=== PATIENT | female | born 1965 ===

== ENCOUNTER 2018-07-28 15:14 | Emergency (ER) | payer OTHER ==
[2018-07-28 15:49] VITALS: BP 120/76
--- NOTE | 2018-07-28 16:18 | UC ---
Skin Complaint HPI - HPI Summary HPI Summary: L sided rash on abd which started about 1 wk ago. feels its worsening , tender to touch. denies sick contacts. - History of Current Complaint Chief Complaint: UCSkin Time Seen by Provider: 07/28/18 16:01 Stated Complaint: SKIN CONCERN Hx Obtained From: Patient Pain Intensity: 4 Pain Scale Used: 0-10 Numeric Aggravating Factor(s): Touch Alleviating Factor(s): Nothing - Allergy/Home Medications Allergies/Adverse Reactions: Allergies Allergy/AdvReac Type Severity Reaction Status Date / Time No Known Allergies Allergy Verified 07/28/18 15:34 Home Medications: Home Medications Isoniazid TAB* 1 tab DAILY 07/28/18 [History Confirmed 07/28/18] Losartan TAB* [Cozaar TAB*] 1 tab QAM 07/28/18 [History Confirmed 07/28/18] PMH/Surg Hx/FS Hx/Imm Hx Previously Healthy: Yes - Surgical History Surgical History: None - Social History Alcohol Use: None Substance Use Type: None Smoking Status (MU): Never Smoked Tobacco Review of Systems All Other Systems Reviewed And Are Negative: Yes Constitutional: Negative: Fever, Chills Skin: Positive: Rash Musculoskeletal: Negative: Arthralgia, Myalgia Physical Exam Triage Information Reviewed: Yes Appearance: Well-Appearing Vital Signs: Initial Vital Signs Temp 98.1 F 07/28/18 15:35 Pulse 62 07/28/18 15:35 Resp 16 07/28/18 15:35 BP 120/76 07/28/18 15:35 Pulse Ox 100 07/28/18 15:35 Vital Signs Reviewed: Yes Skin: Positive: Significant Lesion(s) - L sided vesicular eruption following a dermatome. +tender to touch. Course/Dx - Course Course Of Treatment: L sided abd deramtomal rash; shingles. given new lesions will rx acylcovir. being tx'd w/ [facility] for latent TB. narcotic for herpetic neuralgia. - Differential Diagnoses - Skin Complaint Differential Diagnoses: Tinea, Urticaria, Varicella Zoster, Viral Exanthem - Diagnoses Provider Diagnosis: Shingles Discharge - Sign-Out/Discharge Documenting (check all that apply): Patient Departure All imaging exams completed and their final reports reviewed: No Studies - Discharge Plan Condition: Good Disposition: HOME Prescriptions: oxyCODONE/Acetam5/325MG PREPAK [Percocet 5/325 TAB*] 1 tab PO BID 3 Days #6 tab MDD 2 tabs per day ValACYclovir (*) [Valtrex 1 GM(*)] 1 gm PO TID 7 Days #14 tab Patient Education Materials: [place] (ED) Forms: *Work Release Referrals: No Primary Care Phys,NOPCP [Primary Care Provider] - Additional Instructions: You may take ibuprofen for the pain and if it becomes worse I have sent narcotics to the pharmacy. I've also sent an antiviral which you should start today. The fluid inside the blisters are contagious. - Billing Disposition and Condition Condition: GOOD Disposition: Home
== END 2018-07-28 16:33 | disposition home or self-care (01) ==
LOC: UCCORT 15:14
DX: B02.9 Zoster without complications (principal)
CPT/HCPCS: 99202; G0463